=== PATIENT | female | born 1950 | race Caucasian/White ===

== ENCOUNTER 2024-10-02 06:34 | Day surgery (SDC) | payer MEDICARE, OTHER, SELFPAY ==
[2024-10-02] VITALS (8 sets, daily range): BP systolic 97–162; BP diastolic 63–99; BMI 26.6
[2024-10-02] MEDS: NORMOSOL-R/PLASMALYTE-A 1000 IV (09:45)
[2024-10-02] MEDS: Pyridium 200 MG PO (12:35)
== END 2024-10-02 12:57 | disposition home or self-care (01) ==
LOC: SDS 06:34
PROVIDERS: ATTENDING PHYSICIAN Specialist
DX: N20.1 Calculus of ureter (principal)
CPT/HCPCS: 52356; 74018; 76000; C1894; C2617

== ENCOUNTER 2025-10-06 06:27 | Day surgery (SDC) | payer MEDICARE, OTHER, SELFPAY | END 2025-10-06 15:04 | disposition home or self-care (01) | LOC: GI 06:27 | PROVIDERS: ATTENDING PHYSICIAN Internal Medicine Gastroenterology; FAMILY PHYSICIAN Family Medicine | DX: Z12.11 Encounter for screening for malignant neoplasm of colon (principal); K63.5 Polyp of colon; K57.30 Diverticulosis of large intestine without perforation or abscess without bleeding; K64.9 Unspecified hemorrhoids; R19.5 Other fecal abnormalities | CPT/HCPCS: 45380; 88305 ==